=== PATIENT | male | born 1955 | race American Indian/Alaskan Native ===

== ENCOUNTER 2018-07-31 22:48 | Emergency (ER) | payer MEDICARE ==
[2018-08-01] MEDS ORDERED: KEPPRA 1,000 MG/NS 0.75% 100ML 1,000 MG/100 ML BAG IV ONE (00:05)
[2018-08-01 00:30] VITALS: BP 121/74
--- NOTE | 2018-08-01 00:34 | Emergency Department Report ---
HPI - General Chief Complaint: Seizure Time Seen by Provider: 08/01/18 00:04 - [facility] HPI: Room 25 The patient is a 62-year-old male with chief complaint of seizure. The patient has a history of seizures and states she's been out of his Keppra since yester day morning. The patient states this evening he felt an aura and his girlfriend said he had a seizure. Patient's only complaints now are intermittent auras Location: [employer] Duration: [See above] Quality: Aura Severity: Moderate Modifying factors: [see above] Context: [see above] Mode of transportation: [not driving] ED Past Medical Hx - Past Medical History Previous Medical History?: Yes Hx Seizures: Yes Additional medical history: High colesterol - Surgical History Past Surgical History?: No - Family History Family history: no significant - Social History Smoking Status: Current Some Day Smoker (cigars) Substance Use Type: None - Medications Home Medications: Home Medications Medication Instructions Recorded Confirmed Last Taken Type levETIRAcetam [Keppra TAB] 750 mg PO BID #90 tablet 08/01/18 Unknown Rx ED Review of Systems ROS: Stated complaint: SEIZURE Other details as noted in HPI Constitutional: no symptoms reported Eyes: denies: eye pain ENT: denies: throat pain Respiratory: no symptoms reported Cardiovascular: denies: chest pain Endocrine: no symptoms reported Gastrointestinal: denies: abdominal pain Genitourinary: denies: dysuria Musculoskeletal: denies: back pain Neurological: other (seizure) Physical Exam - Physical Exam Vital Signs: Vital Signs 07/31/18 07/31/18 08/01/18 22:59 23:13 00:28 Temperature 98.7 F Pulse Rate 73 66 Respiratory 14 18 16 Rate Blood Pressure 162/85 121/74 [Left] O2 Sat by Pulse 99 Oximetry Physical Exam: GENERAL: The patient is well-developed well-nourished male lying on stretcher no t appearing to be in acute distress. [] HEENT: Normocephalic. Atraumatic. Extraocular motions are intact. Patient has moist mucous membranes. NECK: Supple. Trachea midline CHEST/LUNGS: Clear to auscultation. There is no respiratory distress noted. HEART/CARDIOVASCULAR: Regular. There is no tachycardia. There is no gallop rub or murmur. ABDOMEN: Abdomen is soft, nontender. Patient has normal bowel sounds. There is no abdominal distention. SKIN: There is no rash. There is no edema. There is no diaphoresis. NEURO: The patient is awake, alert, and oriented. The patient is cooperative. The patient has no focal neurologic deficits. The patient has normal speech. Cranial nerves II through XII grossly intact, no drift MUSCULOSKELETAL: There is no evidence of acute injury. ED Course Vital Signs 07/31/18 07/31/18 08/01/18 22:59 23:13 00:28 Temperature 98.7 F Pulse Rate 73 66 Respiratory 14 18 16 Rate Blood Pressure 162/85 121/74 [Left] O2 Sat by Pulse 99 Oximetry ED Medical Decision Making - Lab Data Result diagrams: 08/01/18 00:20 08/01/18 00:20 Laboratory Tests 08/01/18 08/01/18 08/01/18 00:20 00:20 00:20 WBC 6.8 RBC 3.61 L Hgb 12.1 Hct 35.4 L MCV 98 H MCH 34 H MCHC 34 RDW 14.3 Plt Count 207 Lymph % (Auto) 23.7 Lawrence % (Auto) 9.4 H Eos % (Auto) 1.3 Baso % (Auto) 0.7 Lymph # 1.6 Lawrence # 0.6 Eos # 0.1 Baso # 0.1 Seg Neutrophils % 64.9 Seg Neutrophils # 4.4 Sodium 135 L Potassium 3.9 Chloride 97.9 L Carbon Dioxide 25 Anion Gap 16 BUN 11 Creatinine 1.1 Estimated GFR > 60 BUN/Creatinine Ratio 10 Glucose 98 Calcium 9.1 Magnesium 2.00 - Differential Diagnosis seizure Critical care attestation.: If time is entered above; I have spent that time in minutes in the direct care of this critically ill patient, excluding procedure time. ED Disposition Clinical Impression: Seizure Disposition: DC-01 TO HOME OR SELFCARE Is pt being admited?: No Does the pt Need Aspirin: No Condition: Stable Instructions: Epilepsy (ED) Additional Instructions: Return to the emergency department immediately should you develop worsening symptoms, fever, inability to tolerate food or liquid or any other concerns. Prescriptions: levETIRAcetam [Keppra TAB] 750 mg PO BID #90 tablet Referrals: your, neurologist [Other] - 3-5 Days Time of Disposition: 01:09
[2018-08-01 00:38] LABS: Basophils # (Auto) 0.1 K/mm3 (0.0-0.1); Basophils % (Auto) 0.7 % (0.0-1.8); Eosinophils # (Auto) 0.1 K/mm3 (0.0-0.4); Eosinophils % (Auto) 1.3 % (0.0-4.3); Hematocrit 35.4 % (35.5-45.6); Hemoglobin 12.1 gm/dl (11.8-15.2); Lymphocytes # (Auto) 1.6 K/mm3 (1.2-5.4); Lymphocytes % (Auto) 23.7 % (13.4-35.0); Mean Corpuscular HGB Conc 34 % (32-34); Mean Corpuscular Volume 98 fl (84-94); Monocytes # (Auto) 0.6 K/mm3 (0.0-0.8); Monocytes % (Auto) 9.4 % (0.0-7.3); Platelet Count 207 K/mm3 (140-440); Red Blood Count 3.61 M/mm3 (3.65-5.03); Red Cell Distribution Width 14.3 % (13.2-15.2)
[2018-08-01 00:59] LABS: BUN/Creatinine Ratio 10; Blood Urea Nitrogen 11 mg/dL (9-20); Calcium 9.1 mg/dL (8.4-10.2); Hemolysis Index 3
== END 2018-08-01 01:46 | disposition home or self-care (01) ==
LOC: ED 22:48
DX: R56.9 Unspecified convulsions (principal); E78.00 Pure hypercholesterolemia, unspecified; F17.210 Nicotine dependence, cigarettes, uncomplicated
CPT/HCPCS: 36415; 80048; 83735; 85025; 96365; 99283; J1953

== ENCOUNTER 2018-09-08 17:40 | Emergency (ER) | payer MEDICARE ==
--- NOTE | 2018-09-08 18:52 | Emergency Department Report ---
Blank Doc - Documentation Documentation: 63 y/o with pmh of seizures and elevated cholesterol reports 1 day history of right leg swelling with pain . No chest pain or sob. No headache. Plan us right lower ext
[2018-09-08 19:58] LABS: Basophils # (Auto) 0.1 K/mm3 (0.0-0.1); Basophils % (Auto) 0.8 % (0.0-1.8); Eosinophils % (Auto) 0.4 % (0.0-4.3); Hemoglobin 11.6 gm/dl (11.8-15.2); Lymphocytes # (Auto) 1.2 K/mm3 (1.2-5.4); Lymphocytes % (Auto) 12.4 % (13.4-35.0); Mean Corpuscular HGB Conc 35 % (32-34); Mean Corpuscular Volume 96 fl (84-94); Platelet Count 237 K/mm3 (140-440); Red Blood Count 3.45 M/mm3 (3.65-5.03); Red Cell Distribution Width 14.5 % (13.2-15.2)
[2018-09-08 20:20] LABS: Alanine Aminotransferase 14 units/L (7-56); Albumin 4.2 g/dL (3.9-5); BUN/Creatinine Ratio 8; Blood Urea Nitrogen 11 mg/dL (9-20); Calcium 8.9 mg/dL (8.4-10.2); Hemolysis Index 4
[2018-09-08 21:47] VITALS: BP 120/72
--- NOTE | 2018-09-08 22:30 | Vascular Lab Report ---
PROCEDURE: Right lower extremity duplex venous ultrasound. TECHNIQUE: Routine imaging of the deep venous system was performed. This included Doppler spectral a nalysis and color flow imaging. HISTORY: Right leg pain and swelling. COMPARISONS: None. FINDINGS: The deep venous system is compressible. Flow is confirmed by Doppler evaluation and color imaging. Th ere is normal augmentation of blood flow demonstrated. There is some echogenic material present in th e proximal portion of the greater saphenous vein. This is consistent with superficial thrombophlebiti s. IMPRESSION: Superficial thrombophlebitis. No evidence of deep venous thrombosis. This document is electronically signed by Fernando Magaña MD., September 08 2018 10:28:08 PM ET
[2018-09-08] MEDS ORDERED: ROCEPHIN/NS 1 GM/50 ML 1 GM/50 ML BAG IV ONE (23:04)
--- NOTE | 2018-09-08 23:08 | Emergency Department Report ---
ED Lower Extremity HPI - General Chief Complaint: Extremity Injury, Lower Stated Complaint: RT LEG PAIN Time Seen by Provider: 09/08/18 18:50 Source: patient Mode of arrival: Ambulatory Limitations: No Limitations - History of Present Illness Initial Comments: This is a 63-year-old -[place] male who presents with right lower extremities: Air redness from the ankle for 3 days. 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 He started taking pain medication with minimal improvement of symptoms. Patient states when he went to work today and they sent him home because there was increased redness and swelling. He denies recent injury, numbness or tingling, paresthesias, weakness. MD Complaint: leg injury (right) Onset/Timin -: days(s) Injury: Leg: Right Type of Injury: unknown Place: work Severity: moderate Severity scale (0 -10): 6 Improves With: nothing Worsens With: nothing Associated Symptoms: swelling, ambulatory. denies: snap/pop sensation, numbness, tingling, unable to bear weight, able to partially bear weight Treatments Prior to Arrival: NSAIDS - Related Data Previous Rx's Medication Instructions Recorded Last Taken Type levETIRAcetam [Keppra TAB] 750 mg PO BID #90 tablet 08/01/18 Unknown Rx Ibuprofen [Motrin 600 MG tab] 600 mg PO Q8H PRN #20 tablet 09/09/18 Unknown Rx Sulfamethoxazole/Trimethoprim 1 each PO BID #14 tablet 09/09/18 Unknown Rx [Bactrim DS TAB] Allergies Allergy/AdvReac Type Severity Reaction Status Date / Time No Known Allergies Allergy Unverified 07/31/18 23:18 ED Review of Systems ROS: Stated complaint: RT LEG PAIN Other details as noted in HPI Constitutional: denies: chills, fever Respiratory: denies: cough, shortness of breath, wheezing Cardiovascular: denies: chest pain, palpitations Gastrointestinal: denies: abdominal pain, nausea, diarrhea Musculoskeletal: arthralgia (right lower extremity). denies: back pain, joint swelling Skin: denies: rash, lesions Neurological: denies: headache, weakness, paresthesias Psychiatric: denies: anxiety, depression ED Past Medical Hx - Past Medical History Hx Seizures: Yes Additional medical history: High colesterol - Surgical History Additional Surgical History: abd hernia - Social History Smoking Status: Current Some Day Smoker Substance Use Type: None - Medications Home Medications: Home Medications Medication Instructions Recorded Confirmed Last Taken Type levETIRAcetam [Keppra TAB] 750 mg PO BID #90 tablet 08/01/18 Unknown Rx Ibuprofen [Motrin 600 MG tab] 600 mg PO Q8H PRN #20 tablet 09/09/18 Unknown Rx Sulfamethoxazole/Trimethoprim 1 each PO BID #14 tablet 09/09/18 Unknown Rx [Bactrim DS TAB] ED Physical Exam - General Limitations: No Limitations General appearance: alert, in no apparent distress - Respiratory Respiratory exam: Present: normal lung sounds bilaterally. Absent: respiratory distress - Cardiovascular Cardiovascular Exam: Present: regular rate, normal rhythm. Absent: systolic murmur, diastolic murmur, rubs, gallop - GI/Abdominal GI/Abdominal exam: Present: soft, normal bowel sounds - Expanded Lower Extremity Exam Right Hip exam: Present: normal inspection, full ROM Upper Leg exam: Present: normal inspection, full ROM Knee exam: Present: normal inspection, full ROM Lower Leg exam: Present: full ROM, swelling (swelling and erythema to anterior and lateral from patellar to ankle, warmth, blanchable), erythema. Absent: laceration, ecchymosis, deformity, crepidus, dislocation, palpable cord, Francesca's sign Ankle exam: Present: normal inspection, full ROM Foot/Toe exam: Present: normal inspection, full ROM Neuro vascular tendon exam: Present: no vascular compromise Gait: Positive: observed and normal - Neurological Exam Neurological exam: Present: alert, oriented X3, normal gait - Psychiatric Psychiatric exam: Present: normal affect, normal mood - Skin Skin exam: Present: warm, dry, intact, normal color. Absent: rash ED Course Vital Signs 09/08/18 09/08/18 18:50 21:47 Temperature 97.5 F L Pulse Rate 87 77 Respiratory 18 18 Rate Blood Pressure 133/75 Blood Pressure 120/72 [Right] O2 Sat by Pulse 98 98 Oximetry ED Lower Extremity MDM - Lab Data Result diagrams: 09/08/18 19:43 09/08/18 19:43 Lab Results 09/08/18 09/08/18 Range/Units 19:43 19:43 WBC 9.6 (4.5-11.0) K/mm3 RBC 3.45 L (3.65-5.03) M/mm3 Hgb 11.6 L (11.8-15.2) gm/dl Hct 33.0 L (35.5-45.6) % MCV 96 H (84-94) fl MCH 34 H (28-32) pg MCHC 35 H (32-34) % RDW 14.5 (13.2-15.2) % Plt Count 237 (140-440) K/mm3 Lymph % (Auto) 12.4 L (13.4-35.0) % Hamblen % (Auto) 10.0 H (0.0-7.3) % Eos % (Auto) 0.4 (0.0-4.3) % Baso % (Auto) 0.8 (0.0-1.8) % Lymph # 1.2 (1.2-5.4) K/mm3 Hamblen # 1.0 H (0.0-0.8) K/mm3 Eos # 0.0 (0.0-0.4) K/mm3 Baso # 0.1 (0.0-0.1) K/mm3 Seg Neutrophils % 76.4 H (40.0-70.0) % Seg Neutrophils # 7.3 (1.8-7.7) K/mm3 Sodium 130 L (137-145) mmol/L Potassium 4.2 (3.6-5.0) mmol/L Chloride 89.6 L (98-107) mmol/L Carbon Dioxide 29 (22-30) mmol/L Anion Gap 16 mmol/L BUN 11 (9-20) mg/dL Creatinine 1.3 (0.8-1.5) mg/dL Estimated GFR > 60 ml/min BUN/Creatinine Ratio 8 % Glucose 167 H (75-100) mg/dL Calcium 8.9 (8.4-10.2) mg/dL Total Bilirubin 0.40 (0.1-1.2) mg/dL AST 21 (5-40) units/L ALT 14 (7-56) units/L Alkaline Phosphatase 95 (35-129) units/L Total Protein 7.5 (6.3-8.2) g/dL Albumin 4.2 (3.9-5) g/dL Albumin/Globulin Ratio 1.3 % - Radiology Data Radiology results: report reviewed PROCEDURE: Right lower extremity duplex venous ultrasound. TECHNIQUE: Routine imaging of the deep venous system was performed. This included Doppler spectral analysis and color flow imaging. HISTORY: Right leg pain and swelling. COMPARISONS: None. FINDINGS: The deep venous system is compressible. Flow is confirmed by Doppler evaluation and color imaging. There is normal augmentation of blood flow demonstrated. There is some echogenic material present in the proximal portion of the greater saphenous vein. This is consistent with superficial thrombophlebitis. IMPRESSION: Superficial thrombophlebitis. No evidence of deep venous thrombosis. - Medical Decision Making Patient was examined by me. Vitals are normal and patient is in no acute dis tress. Obtained a CBC, BMP, and doppler of right lower extremity. There is some anemia mild elevation of glucose. Superficial thrombophlebitis. No evidence of deep venous thrombosis. All other labs are unremarkable. Patient will be treated for cellulitis of right lower extremity. Referral to vascular for follow up of thrombophlebitis. Referral to vascular for continued care. Patient informed of results. IV site initiated. Patient given Rocephin 1 g IV. Start Bactrim DS 1 tablet by mouth twice a day 10 days. Plan discussed with patient to discharge home and treat outpatient. He agrees with ER plan. Patient discharged home in stable condition. Follow up with PCP in 2-3 days. Critical care attestation.: If time is entered above; I have spent that time in minutes in the direct care of this critically ill patient, excluding procedure time. ED Disposition Clinical Impression: Swelling of right lower extremity, Superficial thrombophlebitis of right leg Cellulitis of lower extremity Qualifiers: Laterality: right Qualified Code(s): L03.115 - Cellulitis of right lower limb Disposition: TO HOME OR SELFCARE Is pt being admited?: No Does the pt Need Aspirin: No Condition: Stable Instructions: Cellulitis (ED) Prescriptions: Sulfamethoxazole/Trimethoprim [Bactrim DS TAB] 1 each PO BID #14 tablet Ibuprofen [Motrin 600 MG tab] 600 mg PO Q8H PRN #20 tablet PRN Reason: Pain Referrals: ABBIE CARRIZALES [Other] - 3-5 Days [facility] [Provider Group] - 3-5 Days JESUS GOOD MD [Staff Physician] - 3-5 Days RAND OLSON MD [Staff Physician] - 3-5 Days Forms: Work/School Release Form(ED) Time of Disposition: 01:09
== END 2018-09-09 01:36 | disposition home or self-care (01) ==
LOC: ED 17:40
DX: I80.01 Phlebitis and thrombophlebitis of superficial vessels of right lower extremity (principal); L03.115 Cellulitis of right lower limb; E78.00 Pure hypercholesterolemia, unspecified; F17.200 Nicotine dependence, unspecified, uncomplicated
CPT/HCPCS: 36415; 80053; 85025; 93971; 96365; 99284; J0696

== ENCOUNTER 2019-03-24 15:35 | Inpatient (IN) | payer MEDICARE ==
--- NOTE | 2019-03-24 16:08 | Emergency Department Report ---
Blank Doc - Documentation Documentation: 63-year-old male that presents with constipation issues with abdominal discomf ort. Denies any n/v. This initial assessment/diagnostic orders/clinical plan/treatment(s) is/are subject to change based on patient's health status, clinical progression and re- assessment by fellow clinical providers in the ED. Further treatment and workup at subsequent clinical providers discretion. Patient/guardians urged not to elope from the ED as their condition may be serious if not clinically assessed and managed. Initial orders include: 1- Patient sent to [facility] for further evaluation and treatment 2- XR abd 3- labs
--- NOTE | 2019-03-24 17:13 | XRay Report ---
ABDOMEN 3 VIEW(S) INDICATION / CLINICAL INFORMATION: abd pain. COMPARISON: None available. FINDINGS: TUBES / LINES: None. BOWEL GAS PATTERN: No significant abnormality. FREE AIR / EXTRALUMINAL GAS: None seen. ADDITIONAL FINDINGS: Large amount of stool is seen in the transverse colon. IMPRESSION: 1. Constipation. Otherwise unremarkable study. Signer Name: Ehsan Tiwari MD Signed: 03/24/2019 5:08 PM Workstation Name: [id number]
[2019-03-24 18:23] LABS: Basophils % (Auto) 0.4 % (0.0-1.8); Eosinophils % (Auto) 0.3 % (0.0-4.3); Hematocrit 37.1 % (35.5-45.6); Hemoglobin 13.1 gm/dl (11.8-15.2); Lymphocytes # (Auto) 1.3 K/mm3 (1.2-5.4); Lymphocytes % (Auto) 19.6 % (13.4-35.0); Mean Corpuscular HGB Conc 35 % (32-34); Mean Corpuscular Volume 93 fl (84-94); Monocytes # (Auto) 0.7 K/mm3 (0.0-0.8); Monocytes % (Auto) 10.5 % (0.0-7.3); Platelet Count 236 K/mm3 (140-440); Red Blood Count 3.99 M/mm3 (3.65-5.03); Red Cell Distribution Width 13.8 % (13.2-15.2)
[2019-03-24 18:35] LABS: Alanine Aminotransferase 10 units/L (7-56); Albumin 4.6 g/dL (3.9-5); BUN/Creatinine Ratio 6; Blood Urea Nitrogen 7 mg/dL (9-20); Calcium 9.2 mg/dL (8.4-10.2); Hemolysis Index 14
[2019-03-24] MEDS ORDERED: KEPPRA 1,000 MG/NS 0.75% 100ML 1,000 MG/100 ML BAG IV ONE ×2 (19:52→19:56)
[2019-03-24] MEDS ORDERED: NACL 0.9% 500 ML 500 ML IV ONE ×2 (19:56→21:41)
[2019-03-24] MEDS ORDERED: ZOFRAN IV ONE (19:56)
[2019-03-24] MEDS ORDERED: MORPHINE IV ONE (19:56)
--- NOTE | 2019-03-24 19:58 | Emergency Department Report ---
ED General Adult HPI - General Chief complaint: Abdominal Pain Stated complaint: CONSTIPATION 2DAYS Time Seen by Provider: 03/24/19 16:07 Source: patient, RN notes reviewed Mode of arrival: Wheelchair Limitations: No Limitations - History of Present Illness Initial comments: Primary care Dr.: Dr. Parkinson Past medical history: Seizure, hernia repair, high cholesterol This is a 63-year-old gentleman. The patient is not known to this provider previously. He presents to the ER with a complaint of "I feel like I'm going to have a seizure." He also states that he has not been able to tolerate his medication, and that he has diffuse supraumbilical abdominal pain. Last bowel movement was 3 days ago. He states that anytime he eats, he throws up. He denies urinary symptoms. He reports flatus 3 hours ago. He is not had any seizures today. -: Gradual, days(s) Location: abdomen Severity scale (0 -10): 9 Quality: aching Consistency: intermittent Improves with: rest Worsens with: eating - Related Data Home Medications Medication Instructions Recorded Confirmed Last Taken Simvastatin 40 mg PO QDAY 03/24/19 03/24/19 Unknown hydroCHLOROthiazide [HCTZ] 25 mg PO QDAY 03/24/19 03/24/19 Unknown lamoTRIgine [LaMICtal] 200 mg PO BID 03/24/19 03/24/19 Unknown Previous Rx's Medication Instructions Recorded Last Taken Type levETIRAcetam [Keppra TAB] 750 mg PO BID #90 tablet 08/01/18 Unknown Rx Allergies Allergy/AdvReac Type Severity Reaction Status Date / Time No Known Allergies Allergy Unverified 07/31/18 23:18 ED Review of Systems ROS: Stated complaint: CONSTIPATION 2DAYS Other details as noted in HPI Constitutional: malaise, weakness Eyes: denies: eye discharge ENT: denies: epistaxis Respiratory: denies: cough Cardiovascular: denies: syncope Gastrointestinal: abdominal pain, nausea, vomiting, constipation Genitourinary: denies: dysuria, testicular pain Musculoskeletal: denies: back pain Skin: denies: lesions Neurological: weakness Hematological/Lymphatic: denies: easy bleeding ED Past Medical Hx - Past Medical History Previous Medical History?: Yes Hx Seizures: Yes Additional medical history: High colesterol - Surgical History Past Surgical History?: Yes Additional Surgical History: abd hernia - Social History Smoking Status: Never Smoker Substance Use Type: None - Medications Home Medications: Home Medications Medication Instructions Recorded Confirmed Last Taken Type levETIRAcetam [Keppra TAB] 750 mg PO BID #90 tablet 08/01/18 03/24/19 Unknown Rx Simvastatin 40 mg PO QDAY 03/24/19 03/24/19 Unknown History hydroCHLOROthiazide [HCTZ] 25 mg PO QDAY 03/24/19 03/24/19 Unknown History lamoTRIgine [LaMICtal] 200 mg PO BID 03/24/19 03/24/19 Unknown History ED Physical Exam - General Limitations: No Limitations General appearance: alert, in no apparent distress - Head Head exam: Present: atraumatic, normocephalic - Eye Eye exam: Present: normal appearance, EOMI. Absent: nystagmus - ENT ENT exam: Present: normal exam, normal orophraynx, mucous membranes moist, normal external ear exam - Neck Neck exam: Present: normal inspection, full ROM. Absent: tenderness, meningismus - Respiratory Respiratory exam: Present: normal lung sounds bilaterally. Absent: respiratory distress - Cardiovascular Cardiovascular Exam: Present: regular rate, normal rhythm, normal heart sounds. Absent: bradycardia, tachycardia, irregular rhythm, systolic murmur, diastolic murmur, rubs, gallop - GI/Abdominal GI/Abdominal exam: Present: soft. Absent: distended, tenderness, guarding, rebound, rigid, pulsatile mass - Rectal Rectal exam: Present: deferred - Extremities Exam Extremities exam: Present: normal inspection, full ROM, other (2+ pulses noted in the bilateral upper, lower extremities. There is no long bone tenderness. Musculoskeletal compartments are soft. The pelvis is stable.). Absent: pedal edema, calf tenderness - Back Exam Back exam: Present: normal inspection, full ROM. Absent: tenderness, CVA tenderness (R), CVA tenderness (L), paraspinal tenderness, vertebral tenderness - Neurological Exam Neurological exam: Present: alert, oriented X3, other (there is no facial droop. The tongue is midline. Extraocular movements are intact bilaterally. Patient speaking in full complete sentences. Shoulder shrug is intact bilaterally. Hearing is grossly intact bilaterally. Visual acuity intact to finger counting and color perception at a close distance. 5/5 strength 4 extremities. Sensation intact to light touch in 4 extremities.) - Psychiatric Psychiatric exam: Present: normal affect, normal mood - Skin Skin exam: Present: warm, dry, intact, normal color. Absent: rash ED Course Vital Signs 03/24/19 03/24/19 03/24/19 15:42 16:08 19:36 Temperature 98.2 F 98.2 F Pulse Rate 84 84 73 Respiratory 16 16 11 L Rate Blood Pressure 153/87 153/87 Blood Pressure 153/87 [Right] O2 Sat by Pulse 99 100 Oximetry 03/24/19 03/24/19 03/24/19 19:53 20:00 22:00 Temperature Pulse Rate 70 69 70 Respiratory 14 12 13 Rate Blood Pressure 163/85 157/86 Blood Pressure 163/84 [Right] O2 Sat by Pulse 100 100 100 Oximetry - Reevaluation(s) Reevaluation #1: 03/24/19 20:28 Differential diagnosis, including not limited to: Obstruction, constipation, obstipation, dehydration, hypovolemic hyponatremia, urinary tract infection Assessment and plan 63-year-old gentleman with primary complaint of nausea, vomiting, abdominal pain, not having had a bowel movement for 3 days, not able to tolerate liquid feeds, with hyponatremia, hypochloremia, kalemia, suspect hypovolemic hyponatremia. He's not had a seizure while here in the emergency room. He will be started on gentle IV fluids, we will treat his symptoms, low with intravenous Keppra. CT scan of abdomen pelvis has been recommended. Patient will likely be admitted to the medical service for supportive care after initial diagnostics have resulted. We discussed this with the patient who verbalizes understanding, and is amenable to this plan of care. Reevaluation #2: 03/24/19 22:40 CT scan abdomen pelvis shows no acute disease. Constipation is suggested. Repeat sodium still quite low at 123. Patient will be admitted to the medical service for correction of hyponatremia. Hospital physician, Dr. Bravo to admit patient to the medical service. ED Medical Decision Making - Lab Data Result diagrams: 03/24/19 17:02 03/24/19 21:47 Vital Signs 03/24/19 03/24/19 03/24/19 15:42 16:08 19:53 Temperature 98.2 F 98.2 F Pulse Rate 84 84 70 Respiratory 16 16 14 Rate Blood Pressure 153/87 153/87 Blood Pressure 153/87 163/84 [Right] O2 Sat by Pulse 99 100 100 Oximetry Lab Results 03/24/19 03/24/19 Range/Units 17:02 17:02 WBC 6.8 (4.5-11.0) K/mm3 RBC 3.99 (3.65-5.03) M/mm3 Hgb 13.1 (11.8-15.2) gm/dl Hct 37.1 (35.5-45.6) % MCV 93 (84-94) fl MCH 33 H (28-32) pg MCHC 35 H (32-34) % RDW 13.8 (13.2-15.2) % Plt Count 236 (140-440) K/mm3 Lymph % (Auto) 19.6 (13.4-35.0) % Armstrong % (Auto) 10.5 H (0.0-7.3) % Eos % (Auto) 0.3 (0.0-4.3) % Baso % (Auto) 0.4 (0.0-1.8) % Lymph # 1.3 (1.2-5.4) K/mm3 Armstrong # 0.7 (0.0-0.8) K/mm3 Eos # 0.0 (0.0-0.4) K/mm3 Baso # 0.0 (0.0-0.1) K/mm3 Seg Neutrophils % 69.2 (40.0-70.0) % Seg Neutrophils # 4.7 (1.8-7.7) K/mm3 Sodium 121 L (137-145) mmol/L Potassium 3.4 L (3.6-5.0) mmol/L Chloride 79.5 L (98-107) mmol/L Carbon Dioxide 24 (22-30) mmol/L Anion Gap 21 mmol/L BUN 7 L (9-20) mg/dL Creatinine 1.1 (0.8-1.5) mg/dL Estimated GFR > 60 ml/min BUN/Creatinine Ratio 6 % Glucose 106 H (75-100) mg/dL Calcium 9.2 (8.4-10.2) mg/dL Total Bilirubin 0.40 (0.1-1.2) mg/dL AST 15 (5-40) units/L ALT 10 (7-56) units/L Alkaline Phosphatase 99 (35-129) units/L Total Protein 8.2 (6.3-8.2) g/dL Albumin 4.6 (3.9-5) g/dL Albumin/Globulin Ratio 1.3 % - EKG Data -: EKG Interpreted by Nd EKG shows normal: sinus rhythm Rate: normal - EKG Data When compared to previous EKG there are: previous EKG unavailable 03/24/19 20:28 EKG shows a sinus rhythm, 69 bpm, normal axis, QTC is prolonged at 236 ms, there is left ventricular hypertrophy, there is a biphasic T-wave in V2, the EKG is abnormal, the EKG is not consistent with ST elevation myocardial infarction. - Radiology Data Radiology results: pending, report reviewed, image reviewed Print Report Referring Physician: SADE CEE Patient Name: JANE MILLIGAN Date of : 1955 Sex: Male Report Date: 2019-03-24 Report Status: [place] [address] Cat Scan Report Signed Patient: JANE MILLIGAN MR#: [id number] : 1955 Acct:[id number] Age/Sex: 63 / M ADM Date: 03/24/19 Loc: ED Att ending Dr: Ordering Physician: SADE CEE MD Date of Service: 03/24/19 Procedure(s): CT abdomen pelvis w con Accession Number(s): [id number] cc: SADE CEE MD CT abdomen pelvis w con INDICATION: Abdominal pain and nausea and vomiting. TECHNIQUE: All CT scans at this location are performed using the following dose modulation technique: Automated exposure control. 100 cc of Omnipaque 300 is administered. COMPARISON: Abdominal radiographs obtained earlier today FINDINGS: Abdomen: No acute abnormality is seen in the lung bases. Liver, spleen, pancreas, adrenal glands, and kidneys are unremarkable. Atherosclerotic calcifications are noted in the aorta and iliac arteries. There is no adenopathy. Gallbladder is grossly unremarkable. There is some focal wall thickening noted in the duodenal bulb. There is a large amount of stool noted in the colon suggesting constipation. Pelvis: There are fluid-filled small bowel loops in the pelvis. They are not abnormally dilated transition point is seen. The appendix is unremarkable. Urinary bladder is distended. The prostate gland is enlarged. No adenopathy is seen. Atherosclerotic calcifications are noted in the aorta and iliac arteries. On review of bone windows, no acute osseous abnormalities are seen. IMPRESSION: 1. There is fluid noted in the small bowel. No obstruction is seen. The appearance could indicate an enteritis. There is some focal wall thickening noted in the duodenal bulb which could represent peptic ulcer disease or duodenitis. There is no free air. There are no abnormal fluid collections. There is a large amount of stool in the colon raising possibility of constipation. There is atherosclerotic disease. Signer Name: Bandar Frost MD Signed: 03/24/2019 9:16 PM Workstation Name: [id number] Transcribed By: Dictated By: Bandar Frost MD Electronically Authenticated By: Bandar Frost MD Signed Date/Time: 03/24/192115 Print Report Referring Physician: LC CUADRA Patient Name: JANE MILLIGAN Date of : 1955 Sex: Male Report Date: 2019-03-24 Report Status: Finalized Findings [facility] [address] [place] [address] XRay Report Signed Patient: JANE MILLIGAN MR#: [id number] : 1955 Acct:[id number] Age/Sex: 63 / M ADM Date: 03/24/19 Loc: ED Attending Dr: Ordering Physician: LC CUADRA NP Date of Service: 03/24/19 Procedure(s): XR abd series w cxr 1V Accession Number(s): [id number] cc: LC CUADRA NP Fluoro Time In Minutes: ABDOMEN 3 VIEW(S) INDICATION / CLINICAL INFORMATION: abd pain. COMPARISON: None available. FINDINGS: TUBES / LINES: None. BOWEL GAS PATTERN: No significant abnormality. FREE AIR / EXTRALUMINAL GAS: None seen. ADDITIONAL FINDINGS: Large amount of stool is seen in the transverse colon. IMPRESSION: 1. Constipation. Otherwise unremarkable study. Signer Name: Ehsan Tiwari MD Signed: 03/24/2019 5:08 PM Workstation Name: [id number] Transcribed By: Dictated By: Ehsan Tiwari MD Electronically Authenticated By: Ehsan Tiwari MD Signed Date/Time: 03/24/191707 DD/ 04 TD/TT: Critical care attestation.: If time is entered above; I have spent that time in minutes in the direct care of this critically ill patient, excluding procedure time. ED Disposition Clinical Impression: Hyponatremia, Hypokalemia Constipation Qualifiers: Constipation type: other constipation type Qualified Code(s): K59.09 - Other constipation Disposition: OP ADMIT IP TO THIS HOSP Is pt being admited?: Yes Condition: Good [facility] [Referring] - 3-5 Days
[2019-03-24] MEDS: KCL 10MEQ/100ML 10 MEQ/100 ML BAG IV SCH ×3 (20:39→22:58)
--- NOTE | 2019-03-24 21:20 | Cat Scan Report ---
CT abdomen pelvis w con INDICATION: Abdominal pain and nausea and vomiting. TECHNIQUE: All CT scans at this location are performed using the following dose modulation technique: Automated exposure control. 100 cc of Omnipaque 300 is administered. COMPARISON: Abdominal radiographs obtained earlier today FINDINGS: Abdomen: No acute abnormality is seen in the lung bases. Liver, spleen, pancreas, adrenal glands, and kidneys are unremarkable. Atherosclerotic calcifications are noted in the aorta and iliac arteries. There is no adenopathy. Gallbladder is grossly unremarkable. There is some focal wall thickening note d in the duodenal bulb. There is a large amount of stool noted in the colon suggesting constipation. Pelvis: There are fluid-filled small bowel loops in the pelvis. They are not abnormally dilated trans ition point is seen. The appendix is unremarkable. Urinary bladder is distended. The prostate gland is enlarged. No adenopathy is seen. Atherosclerotic calcifications are noted in the aorta and iliac arteries. On review of bone windows, no acute osseous abnormalities are seen. IMPRESSION: 1. There is fluid noted in the small bowel. No obstruction is seen. The appearance could indicate an enteritis. There is some focal wall thickening noted in the duodenal bulb which could represent peptic ulcer dis ease or duodenitis. There is no free air. There are no abnormal fluid collections. There is a large amount of stool in the colon raising possibility of constipation. There is atherosclerotic disease. Signer Name: Bandar Frost MD Signed: 03/24/2019 9:16 PM Workstation Name: [id number]
[2019-03-24] MEDS ORDERED: CEPHULAC PO ONE (21:41)
[2019-03-24 21:52] LABS: Uric Acid 4.3 mg/dL (3.5-7.6)
[2019-03-24 22:39] LABS: Bacteria,Urine 1+ /HPF (Negative); Bilirubin,Urine NEG (Negative); Blood,Urine MOD (Negative); Color,Urine Straw (Yellow); Protein,Urine <15 mg/dL mg/dL (Negative); Urobilinogen,Urine < 2.0 mg/dL (<2.0); WBC,Urine < 1.0 /HPF (0.0-6.0)
[2019-03-24] MEDS ORDERED: ZOFRAN IV PRN (23:00)
[2019-03-24] MEDS ORDERED: SODIUM CHLORIDE FLUSH SYRINGE 10 ML IV PRN (23:00)
--- NOTE | 2019-03-24 23:02 | History and Physical Report ---
History of Present Illness Date of examination: 03/24/19 History of present illness: 63-year-old man with a history of hypertension, hyperlipidemia, seizure comes emergency room with complaints of abdominal pain that started yesterday after eating salmon. Pain is periumbilical which she describes as dull pain, intermit tent every 1 hour, intensity follow 10, no radiation cannot identify exacerbating factor. He stated that his abdominal pain is not resolved and was associated with multiple episodes of nausea vomiting. Today he has decreased appetite. Denies diarrhea, fever or chills eview Of Systems: Constitutional: no weight loss, fever, chills Ears, eyes, nose, mouth and throat: no nasal congestion, no nasal discharge, no sinus pressure, blurry vision, diplopia Neck: No neck pain or rigidity. Cardiovascular: No palpitations, chest pain Respiratory: No shortness of breath, cough Gastrointestinal: No hematochezia, abdominal pain Genitourinary : no dysuria, frequency , hematuria Musculoskeletal: no muscle ache , joint pain Integumentary: no rash, no pruritis Neurological: no parathesias, focal weakness Endocrine: no cold or heat intolerance, no polyuria or polydipsia Hematologic/Lymphatic: no easy bruising, no easy bleeding, no gland swelling Allergic/Immunologic: no urticaria, no angioedema. PAST MEDICAL HISTORY:hypertension, hyperlipidemia, seizure PAST SURGICAL HISTORY: FAMILY HISTORY:hypertension, diabetes SOCIAL HISTORY: denies drugs, alcohol, smoke 1-1/2 cigars a day Medications and Allergies Allergies Allergy/AdvReac Type Severity Reaction Status Date / Time No Known Allergies Allergy Unverified 07/31/18 23:18 Home Medications Medication Instructions Recorded Confirmed Last Taken Type levETIRAcetam [Keppra TAB] 750 mg PO BID #90 tablet 08/01/18 03/24/19 Unknown Rx Simvastatin 40 mg PO QDAY 03/24/19 03/24/19 Unknown History hydroCHLOROthiazide [HCTZ] 25 mg PO QDAY 03/24/19 03/24/19 Unknown History lamoTRIgine [LaMICtal] 200 mg PO BID 03/24/19 03/24/19 Unknown History Active Meds: Active Medications Acetaminophen (Tylenol) 650 mg PO Q4H PRN PRN Reason: Pain MILD(1-3)/Fever >100.5/FITZGERALD Enoxaparin Sodium (Lovenox) 30 mg SUB-Q QDAY MAGI Potassium Chloride (Kcl 10meq/100ml) 10 meq in 100 mls @ 100 mls/hr IV Q1H MAGI Stop: 03/24/19 23:59 Last Admin: 03/24/19 22:58 Dose: 100 mls/hr Documented by: Sodium Chloride (Nacl 0.9% 1000 Ml) 1,000 mls @ 125 mls/hr IV DIRECT MAGI Ondansetron HCl (Zofran) 4 mg IV Q8H PRN PRN Reason: Nausea And Vomiting Sodium Chloride (Sodium Chloride Flush Syringe 10 Ml) 10 ml IV BID MAGI Sodium Chloride (Sodium Chloride Flush Syringe 10 Ml) 10 ml IV PRN PRN PRN Reason: LINE FLUSH Exam - Physical Exam Narrative exam: General Apperance: The patient sitting in bed no acute distress HEENT: Normocephalic, atraumatic. Pupils equally round and reactive to light, extraocular movement intact, and no sclericterus or JVD or thyromegaly or nodule. Neck supple, no carotid bruit, mucous membranes moist, no exudate or erythema Heart: S1-S2, regular is rhythm Lungs: Clear to auscultation bilaterally, breathing comfortable Abdomen: Positive bowel sounds, soft, nontender, nondistended, no organomegaly Extremities: No edema cyanosis clubbing Skin: no rash, nodule, warm and dry Neuro:CN 2 -12 intact, motor/sensory intact, speech is fluent - Constitutional Vitals: Temp Pulse Resp BP Pulse Ox 98.2 F 70 13 157/86 100 03/24/19 16:08 03/24/19 22:00 03/24/19 22:00 03/24/19 22:00 03/24/19 22:00 Results - Labs CBC & Chem 7: 03/24/19 17:02 03/24/19 21:47 Labs: Abnormal lab results 03/24/19 03/24/19 03/24/19 Range/Units 17:02 17:02 20:12 MCH 33 H (28-32) pg MCHC 35 H (32-34) % Pickett % (Auto) 10.5 H (0.0-7.3) % Sodium 121 L (137-145) mmol/L Potassium 3.4 L (3.6-5.0) mmol/L Chloride 79.5 L (98-107) mmol/L BUN 7 L (9-20) mg/dL Glucose 106 H (75-100) mg/dL Total Creatine Kinase 194 H (55-170) units/L 03/24/19 Range/Units 21:47 MCH (28-32) pg MCHC (32-34) % Pickett % (Auto) (0.0-7.3) % Sodium 123 L (137-145) mmol/L Potassium (3.6-5.0) mmol/L Chloride (98-107) mmol/L BUN (9-20) mg/dL Glucose (75-100) mg/dL Total Creatine Kinase (55-170) units/L - Imaging and Cardiology EKG: image reviewed Chest x-ray: report reviewed Abdominal x-ray: report reviewed CT scan - abdomen: report reviewed CT scan - pelvis: report reviewed Assessment and Plan Assessment Hyponatremia Gastroenteritis, most likely viral Hypertension Hyperlipidemia Seizure Plan Admit to medicine Start IV fluid, monitor sodium levels Continue appropriate outpatient medications DVT prophylaxis
[2019-03-25] MEDS: NACL 0.9% 1000 ML 1,000 ML IV SCH ×2 (05:05→12:23)
[2019-03-25 07:35] LABS: Basophils % (Auto) 0.6 % (0.0-1.8); Eosinophils % (Auto) 0.8 % (0.0-4.3); Hematocrit 37.2 % (35.5-45.6); Lymphocytes # (Auto) 1.4 K/mm3 (1.2-5.4); Lymphocytes % (Auto) 22.4 % (13.4-35.0); Mean Corpuscular HGB Conc 35 % (32-34); Mean Corpuscular Volume 94 fl (84-94); Monocytes # (Auto) 0.7 K/mm3 (0.0-0.8); Platelet Count 211 K/mm3 (140-440); Red Blood Count 3.96 M/mm3 (3.65-5.03); Red Cell Distribution Width 13.8 % (13.2-15.2)
[2019-03-25 08:00] LABS: BUN/Creatinine Ratio 7; Blood Urea Nitrogen 6 mg/dL (9-20); Calcium 8.7 mg/dL (8.4-10.2); Hemolysis Index 8
[2019-03-25] MEDS: SODIUM CHLORIDE FLUSH SYRINGE 10 ML IV SCH ×2 (09:41→22:15)
[2019-03-25] MEDS: ENOXAPARIN SUB-Q SCH (09:41)
[2019-03-25] MEDS: LaMICtal PO SCH ×2 (09:41→22:15)
[2019-03-25] MEDS: PRAVACHOL PO SCH (09:41)
--- NOTE | 2019-03-25 10:05 | Progress Note ---
Assessment and Plan Assessment and plan: 63-year-old man with a history of hypertension, hyperlipidemia, seizure comes emergency room with complaints of abdominal pain that started yesterday after eating salmon. Pain is periumbilical which she describes as dull pain, intermittent every 1 hour, intensity follow 10, no radiation cannot identify exacerbating factor. He stated that his abdominal pain is not resolved and was associated with multiple episodes of nausea vomiting. Today he has decreased appetite. Hyponatremia Acute Gastroenteritis, most likely viral Hypertension Hyperlipidemia Seizure Plan Admitted to Tele Continue iv fluids monitor sodium levels Na 127, increasing Continue appropriate outpatient medications DVT prophylaxis Poss dc tomorrow if Sodium normal or close to normal. History Interval history: Vomiting subsiding less abd pain Hospitalist Physical - Physical exam Narrative exam: Gen: Not in acute distress, lying in bed, HEENT: Normocephalic, atraumatic Neck: supple, no JVD Heart: S1 and S2 reg, no murmurs, rubs or gallop Lungs: Clear to auscultation, no rhonchi, no wheeze Abd: soft, non tender, non distended, normal BS, Ext: No edema, no clubbing, no cyanosis Neuro: Awake, alert, oriented X 3, no focal neurological signs - Constitutional Vitals: Temp Pulse Resp BP Pulse Ox 98.0 F 82 18 135/81 100 03/25/19 07:43 03/25/19 07:43 03/25/19 07:43 03/25/19 07:43 03/25/19 07:43 Results - Labs CBC & Chem 7: 03/25/19 06:59 03/25/19 06:59 Labs: Laboratory Last Values WBC 6.1 K/mm3 (4.5-11.0) 03/25/19 06:59 RBC 3.96 M/mm3 (3.65-5.03) 03/25/19 06:59 Hgb 13.0 gm/dl (11.8-15.2) 03/25/19 06:59 Hct 37.2 % (35.5-45.6) 03/25/19 06:59 MCV 94 fl (84-94) 03/25/19 06:59 MCH 33 pg (28-32) H 03/25/19 06:59 MCHC 35 % (32-34) H 03/25/19 06:59 RDW 13.8 % (13.2-15.2) 03/25/19 06:59 Plt Count 211 K/mm3 (140-440) 03/25/19 06:59 Lymph % (Auto) 22.4 % (13.4-35.0) 03/25/19 06:59 [place] % (Auto) 11.0 % (0.0-7.3) H 03/25/19 06:59 Eos % (Auto) 0.8 % (0.0-4.3) 03/25/19 06:59 Baso % (Auto) 0.6 % (0.0-1.8) 03/25/19 06:59 Lymph # 1.4 K/mm3 (1.2-5.4) 03/25/19 06:59 [place] # 0.7 K/mm3 (0.0-0.8) 03/25/19 06:59 Eos # 0.0 K/mm3 (0.0-0.4) 03/25/19 06:59 Baso # 0.0 K/mm3 (0.0-0.1) 03/25/19 06:59 Seg Neutrophils % 65.2 % (40.0-70.0) 03/25/19 06:59 Seg Neutrophils # 4.0 K/mm3 (1.8-7.7) 03/25/19 06:59 Sodium 127 mmol/L (137-145) L 03/25/19 06:59 Potassium 3.8 mmol/L (3.6-5.0) 03/25/19 06:59 Chloride 89.5 mmol/L (98-107) L 03/25/19 06:59 Carbon Dioxide 20 mmol/L (22-30) L 03/25/19 06:59 Anion Gap 21 mmol/L 03/25/19 06:59 BUN 6 mg/dL (9-20) L 03/25/19 06:59 Creatinine 0.9 mg/dL (0.8-1.5) 03/25/19 06:59 Estimated GFR > 60 ml/min 03/25/19 06:59 BUN/Creatinine Ratio 7 % 03/25/19 06:59 Glucose 83 mg/dL (75-100) 03/25/19 06:59 Uric Acid 4.3 mg/dL (3.5-7.6) 03/24/19 20:12 Calcium 8.7 mg/dL (8.4-10.2) 03/25/19 06:59 Magnesium 1.80 mg/dL (1.7-2.3) 03/24/19 20:12 Total Bilirubin 0.40 mg/dL (0.1-1.2) 03/24/19 17:02 AST 15 units/L (5-40) 03/24/19 17:02 ALT 10 units/L (7-56) 03/24/19 17:02 Alkaline Phosphatase 99 units/L (35-129) 03/24/19 17:02 Total Creatine Kinase 194 units/L (55-170) H 03/24/19 20:12 Total Protein 8.2 g/dL (6.3-8.2) 03/24/19 17:02 Albumin 4.6 g/dL (3.9-5) 03/24/19 17:02 Albumin/Globulin Ratio 1.3 % 03/24/19 17:02 TSH 1.450 mlU/mL (0.270-4.200) 03/24/19 20:12 Urine Color Straw (Yellow) 03/24/19 22:20 Urine Turbidity Clear (Clear) 03/24/19 22:20 Urine pH 6.0 (5.0-7.0) 03/24/19 22:20 Ur Specific [place] 1.015 (1.003-1.030) 03/24/19 22:20 Urine Protein <15 mg/dl mg/dL (Negative) 03/24/19 22:20 Urine Glucose (UA) Neg mg/dL (Negative) 03/24/19 22:20 Urine Ketones Tr mg/dL (Negative) 03/24/19 22:20 Urine Blood Mod (Negative) 03/24/19 22:20 Urine Nitrite Neg (Negative) 03/24/19 22:20 Urine Bilirubin Neg (Negative) 03/24/19 22:20 Urine Urobilinogen < 2.0 mg/dL (<2.0) 03/24/19 22:20 Ur Leukocyte Esterase Neg (Negative) 03/24/19 22:20 Urine WBC (Auto) < 1.0 /HPF (0.0-6.0) 03/24/19 22:20 Urine RBC (Auto) 4.0 /HPF (0.0-6.0) 03/24/19 22:20 Urine Bacteria (Auto) 1+ /HPF (Negative) 03/24/19 22:20 Urine Osmolality 163 Mosm/kg 03/24/19 22:20 Urine Creatinine 48.0 mg/dL (0.1-20.0) H 03/24/19 22:20 Urine Sodium 26 mmol/L 03/24/19 22:20 Active Medications - Current Medications Current Medications: Generic Name Dose Route Start Last Admin Trade Name Freq PRN Reason Stop Dose Admin Acetaminophen 650 mg 03/24/19 23:00 Tylenol PO Q4H PRN Pain MILD(1-3)/Fever >100.5/FITZGERALD Enoxaparin Sodium 40 mg 03/25/19 10:00 03/25/19 09:41 Lovenox SUB-Q 40 mg QDAY MAGI Administration Sodium Chloride 1,000 mls @ 125 mls/hr 03/24/19 23:00 03/25/19 05:05 Nacl 0.9% 1000 Ml IV 125 mls/hr DIRECT MAGI Administration Levetiracetam 750 mg/ Dextrose 107.5 mls @ 400 mls/hr 03/25/19 10:00 IV Q12HR MAGI Lamotrigine 200 mg 03/25/19 10:00 03/25/19 09:41 Lamictal PO 200 mg BID MAGI Administration Ondansetron HCl 4 mg 03/24/19 23:00 Zofran IV Q8H PRN Nausea And Vomiting Pravastatin Sodium 80 mg 03/25/19 10:00 03/25/19 09:41 Pravachol PO 80 mg QDAY MAGI Administration Sodium Chloride 10 ml 03/25/19 10:00 03/25/19 09:41 Sodium Chloride Flush Syringe 10 Ml IV 10 ml BID MAGI Administration Sodium Chloride 10 ml 03/24/19 23:00 Sodium Chloride Flush Syringe 10 Ml IV PRN PRN LINE FLUSH
[2019-03-25] MEDS: KEPPRA 750 MG in D5W 100 ML IV SCH ×2 (10:25→22:15)
[2019-03-25] MEDS: TYLENOL PO PRN (20:50)
[2019-03-26] MEDS: TORADOL IV PRN ×2 (02:34→19:52)
[2019-03-26 06:29] LABS: BUN/Creatinine Ratio 8; Blood Urea Nitrogen 8 mg/dL (9-20); Calcium 8.2 mg/dL (8.4-10.2); Hemolysis Index 3
[2019-03-26] MEDS: ENOXAPARIN SUB-Q SCH (10:12)
[2019-03-26] MEDS: PRAVACHOL PO SCH (10:12)
[2019-03-26] MEDS: NACL 0.9% 1000 ML 1,000 ML IV SCH ×2 (10:12→19:44)
[2019-03-26] MEDS: LaMICtal PO SCH ×2 (10:12→21:18)
[2019-03-26] MEDS: SODIUM CHLORIDE FLUSH SYRINGE 10 ML IV SCH ×2 (10:12→21:19)
[2019-03-26] MEDS: KEPPRA 750 MG in D5W 100 ML IV SCH ×2 (10:12→21:18)
--- NOTE | 2019-03-26 15:53 | Progress Note ---
Assessment and Plan Assessment and plan: 63-year-old man with a history of hypertension, hyperlipidemia, seizure comes emergency room with complaints of abdominal pain that started yesterday after eating salmon. Pain is periumbilical which she describes as dull pain, intermittent every 1 hour, intensity follow 10, no radiation cannot identify exacerbating factor. He stated that his abdominal pain is not resolved and was associated with multiple episodes of nausea vomiting. Today he has decreased appetite. Hyponatremia Acute Gastroenteritis, most likely viral Hypertension Hyperlipidemia Seizure Plan Admitted to Tele Continue iv fluids monitor sodium levels Na 129, increasing Continue appropriate outpatient medications DVT prophylaxis Poss dc tomorrow if Sodium normal or close to normal. History Interval history: Vomiting subsiding less abd pain Hospitalist Physical - Physical exam Narrative exam: Gen: Not in acute distress, lying in bed, HEENT: Normocephalic, atraumatic Neck: supple, no JVD Heart: S1 and S2 reg, no murmurs, rubs or gallop Lungs: Clear to auscultation, no rhonchi, no wheeze Abd: soft, non tender, non distended, normal BS, Ext: No edema, no clubbing, no cyanosis Neuro: Awake, alert, oriented X 3, no focal neurological signs - Constitutional Vitals: Temp Pulse Resp BP Pulse Ox 97.9 F 66 18 147/78 100 03/26/19 15:42 03/26/19 15:42 03/26/19 15:42 03/26/19 15:42 03/26/19 15:42 Results - Labs CBC & Chem 7: 03/25/19 06:59 03/26/19 14:31 Labs: Laboratory Last Values WBC 6.1 K/mm3 (4.5-11.0) 03/25/19 06:59 RBC 3.96 M/mm3 (3.65-5.03) 03/25/19 06:59 Hgb 13.0 gm/dl (11.8-15.2) 03/25/19 06:59 Hct 37.2 % (35.5-45.6) 03/25/19 06:59 MCV 94 fl (84-94) 03/25/19 06:59 MCH 33 pg (28-32) H 03/25/19 06:59 MCHC 35 % (32-34) H 03/25/19 06:59 RDW 13.8 % (13.2-15.2) 03/25/19 06:59 Plt Count 211 K/mm3 (140-440) 03/25/19 06:59 Lymph % (Auto) 22.4 % (13.4-35.0) 03/25/19 06:59 Corson % (Auto) 11.0 % (0.0-7.3) H 03/25/19 06:59 Eos % (Auto) 0.8 % (0.0-4.3) 03/25/19 06:59 Baso % (Auto) 0.6 % (0.0-1.8) 03/25/19 06:59 Lymph # 1.4 K/mm3 (1.2-5.4) 03/25/19 06:59 Corson # 0.7 K/mm3 (0.0-0.8) 03/25/19 06:59 Eos # 0.0 K/mm3 (0.0-0.4) 03/25/19 06:59 Baso # 0.0 K/mm3 (0.0-0.1) 03/25/19 06:59 Seg Neutrophils % 65.2 % (40.0-70.0) 03/25/19 06:59 Seg Neutrophils # 4.0 K/mm3 (1.8-7.7) 03/25/19 06:59 Sodium 129 mmol/L (137-145) L 03/26/19 14:31 Potassium 3.9 mmol/L (3.6-5.0) 03/26/19 05:57 Chloride 95.4 mmol/L (98-107) L 03/26/19 05:57 Carbon Dioxide 25 mmol/L (22-30) 03/26/19 05:57 Anion Gap 13 mmol/L 03/26/19 05:57 BUN 8 mg/dL (9-20) L 03/26/19 05:57 Creatinine 1.0 mg/dL (0.8-1.5) 03/26/19 05:57 Estimated GFR > 60 ml/min 03/26/19 05:57 BUN/Creatinine Ratio 8 % 03/26/19 05:57 Glucose 89 mg/dL (75-100) 03/26/19 05:57 Uric Acid 4.3 mg/dL (3.5-7.6) 03/24/19 20:12 Calcium 8.2 mg/dL (8.4-10.2) L 03/26/19 05:57 Magnesium 1.80 mg/dL (1.7-2.3) 03/24/19 20:12 Total Bilirubin 0.40 mg/dL (0.1-1.2) 03/24/19 17:02 AST 15 units/L (5-40) 03/24/19 17:02 ALT 10 units/L (7-56) 03/24/19 17:02 Alkaline Phosphatase 99 units/L (35-129) 03/24/19 17:02 Total Creatine Kinase 194 units/L (55-170) H 03/24/19 20:12 Total Protein 8.2 g/dL (6.3-8.2) 03/24/19 17:02 Albumin 4.6 g/dL (3.9-5) 03/24/19 17:02 Albumin/Globulin Ratio 1.3 % 03/24/19 17:02 TSH 1.450 mlU/mL (0.270-4.200) 03/24/19 20:12 Urine Color Straw (Yellow) 03/24/19 22:20 Urine Turbidity Clear (Clear) 03/24/19 22:20 Urine pH 6.0 (5.0-7.0) 03/24/19 22:20 Ur Specific [place] 1.015 (1.003-1.030) 03/24/19 22:20 Urine Protein <15 mg/dl mg/dL (Negative) 03/24/19 22:20 Urine Glucose (UA) Neg mg/dL (Negative) 03/24/19 22:20 Urine Ketones Tr mg/dL (Negative) 03/24/19 22:20 Urine Blood Mod (Negative) 03/24/19 22:20 Urine Nitrite Neg (Negative) 03/24/19 22:20 Urine Bilirubin Neg (Negative) 03/24/19 22:20 Urine Urobilinogen < 2.0 mg/dL (<2.0) 03/24/19 22:20 Ur Leukocyte Esterase Neg (Negative) 03/24/19 22:20 Urine WBC (Auto) < 1.0 /HPF (0.0-6.0) 03/24/19 22:20 Urine RBC (Auto) 4.0 /HPF (0.0-6.0) 03/24/19 22:20 Urine Bacteria (Auto) 1+ /HPF (Negative) 03/24/19 22:20 Urine Osmolality 163 Mosm/kg 03/24/19 22:20 Urine Creatinine 48.0 mg/dL (0.1-20.0) H 03/24/19 22:20 Urine Sodium 26 mmol/L 03/24/19 22:20 Active Medications - Current Medications Current Medications: Generic Name Dose Route Start Last Admin Trade Name Freq PRN Reason Stop Dose Admin Acetaminophen 650 mg 03/24/19 23:00 03/25/19 20:50 Tylenol PO 650 mg Q4H PRN Administration Pain MILD(1-3)/Fever >100.5/FITZGERALD Enoxaparin Sodium 40 mg 03/25/19 10:00 03/26/19 10:12 Lovenox SUB-Q 40 mg QDAY MAGI Administration Sodium Chloride 1,000 mls @ 125 mls/hr 03/24/19 23:00 03/26/19 10:12 Nacl 0.9% 1000 Ml IV 125 mls/hr DIRECT MAGI Administration Levetiracetam 750 mg/ Dextrose 107.5 mls @ 400 mls/hr 03/25/19 10:00 03/26/19 10:12 IV 400 mls/hr Q12HR MAGI Administration Ketorolac Tromethamine 15 mg 03/26/19 02:25 03/26/19 02:34 Toradol IV 15 mg Q6H PRN Administration Pain, Mild (1-3) Lamotrigine 200 mg 03/25/19 10:00 03/26/19 10:12 Lamictal PO 200 mg BID MAGI Administration Ondansetron HCl 4 mg 03/24/19 23:00 Zofran IV Q8H PRN Nausea And Vomiting Pravastatin Sodium 80 mg 03/25/19 10:00 03/26/19 10:12 Pravachol PO 80 mg QDAY MAGI Administration Sodium Chloride 10 ml 03/25/19 10:00 03/26/19 10:12 Sodium Chloride Flush Syringe 10 Ml IV 10 ml BID MAGI Administration Sodium Chloride 10 ml 03/24/19 23:00 Sodium Chloride Flush Syringe 10 Ml IV PRN PRN LINE FLUSH Nutrition/Malnutrition Assess - Dietary Evaluation Nutrition/Malnutrition Findings: Nutrition Notes Start: 03/25/19 11:46 Freq: Status: Active Protocol: Document 03/25/19 11:46 CC (Rec: 03/25/19 12:45 CC [id number]) Co-Sign 03/25/19 11:46 KH Nutrition Notes Need for Assessment generated from: MST Initial or Follow up Assessment Current Diagnosis Hypertension,Hyperlipidemia Other Pertinent Diagnosis seizures, high cholesterol Current Diet Cardiac Labs/Tests reviewed Pertinent Medications reviewed Height 5 ft 9 in Weight 73.3 kg [place] Body Weight (kg) 72.72 BMI 23.8 Weight change and time frame 12.7%/1 year Weight Status Appropriate Subjective/Other Information MST score. 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 Pt reported his appetite has been good after arrival and GI symptoms have improved. Pt reported he has had an unintentional wt loss of 15lbs in the past year. Pt had some mild temporal muscle wasting. Percent of energy/protein needs met: 93% energy/ 100% protein Burn Absent Trauma Absent GI Symptoms None Food Allergy No Cultural/Ethnic/Mormon Belief No pork, no milk Current % PO Good (75-100%) Minimum of two criteria No #1 Nutrition Diagnosis No nutrition diagnosis at this time Is patient on ventilator? No Is Patient Ambulatory and/or Out of Bed Yes REE-([facility]-ambulatory/OOB) [ 1973.894 [id number]] Calculation Used for Recommendations [facility] Additional Notes PRO: 59-73g/day (0.8-1.0g/kg) Fluid: 1ml/kcal Nutrition Intervention Change Diet Order: continue cardiac diet Goal #1 Continue to meet at least 80% energy and protein needs po Anticipated Discharge Needs: cardiac diet Revisit per MD consult or patient Sign Off request:
[2019-03-26] MEDS: TYLENOL PO PRN (23:31)
[2019-03-27] MEDS: TORADOL IV PRN (06:00)
[2019-03-27] MEDS: NACL 0.9% 1000 ML 1,000 ML IV SCH (06:02)
[2019-03-27] MEDS: ENOXAPARIN SUB-Q SCH (09:59)
[2019-03-27] MEDS: PRAVACHOL PO SCH (09:59)
[2019-03-27] MEDS: LaMICtal PO SCH (09:59)
[2019-03-27] MEDS: SODIUM CHLORIDE FLUSH SYRINGE 10 ML IV SCH (10:00)
[2019-03-27] MEDS: KEPPRA 750 MG in D5W 100 ML IV SCH (10:02)
--- NOTE | 2019-03-27 10:50 | Discharge Summary ---
Providers - Providers Date of Admission: 03/24/19 23:00 Date of discharge: 03/27/19 Attending physician: SADE LEBLANC Hospitalization Condition: Good Disposition: DC-30 STILL A PATIENT - Discharge Diagnoses (1) Hyponatremia Status: Acute Exam - Constitutional Vitals: Temp Pulse Resp BP Pulse Ox 97.9 F 58 L 18 117/63 99 03/27/19 07:54 03/27/19 07:54 03/27/19 07:54 03/27/19 07:54 03/27/19 07:54 Plan Activity: no restrictions Diet: low fat, low cholesterol Plan of Treatment: 1.Follow up with PCP in 1 week [facility] [Referring[facility] - 3-5 Days Prescriptions: amLODIPine 5 mg PO DAILY #30 tab
[2019-03-27 11:35] VITALS: BP 158/76
[2019-03-27] MEDS: TYLENOL PO PRN (14:01)
[2019-03-28] MEDS ORDERED: KEPPRA PO SCH (10:00)
== END 2019-03-27 18:35 | disposition home or self-care (01) | DRG 392 ==
LOC: ED 15:35 → 4A 23:00
PROVIDERS: ADMIT Internal Medicine; ATTEND Internal Medicine
DX: K52.9 Noninfective gastroenteritis and colitis, unspecified (principal); E87.1 Hypo-osmolality and hyponatremia; K59.00 Constipation, unspecified; E87.6 Hypokalemia; R56.9 Unspecified convulsions; I10 Essential (primary) hypertension; E78.5 Hyperlipidemia, unspecified; Z82.49 Family history of ischemic heart disease and other diseases of the circulatory system; Z83.3 Family history of diabetes mellitus; Z79.899 Other long term (current) drug therapy
CPT/HCPCS: 36415; 74022; 74177; 80048; 80053; 81001; 82550; 82570; 83735; 83935; 84295; 84300; 84443; 84550; 85025; 87045; 93005; 93010; 99406; G0378; A9270-GY; J1650; J1885; J1953; J2270; J2405; J3480; J7030; J7040; Q9967

== ENCOUNTER 2019-04-03 22:15 | Emergency (ER) | payer MEDICARE ==
--- NOTE | 2019-04-03 22:51 | Emergency Department Report ---
Blank Doc - Documentation Documentation: 63-year-old male that presents with abdominal pain and n/v. Stated has been h aving aura but denies any SZ. This initial assessment/diagnostic orders/clinical plan/treatment(s) is/are subject to change based on patient's health status, clinical progression and re- assessment by fellow clinical providers in the ED. Further treatment and workup at subsequent clinical providers discretion. Patient/guardians urged not to elope from the ED as their condition may be serious if not clinically assessed and managed. Initial orders include: 1- Patient sent to [facility] for further evaluation and treatment 2- labs 3- UA
[2019-04-03 22:55] VITALS: BP 139/81
[2019-04-03 23:55] LABS: Basophils # (Auto) 0.1 K/mm3 (0.0-0.1); Basophils % (Auto) 0.6 % (0.0-1.8); Eosinophils % (Auto) 0.4 % (0.0-4.3); Hematocrit 24.2 % (35.5-45.6); Hemoglobin 8.5 gm/dl (11.8-15.2); Lymphocytes # (Auto) 1.8 K/mm3 (1.2-5.4); Lymphocytes % (Auto) 16.2 % (13.4-35.0); Mean Corpuscular HGB Conc 35 % (32-34); Mean Corpuscular Volume 95 fl (84-94); Monocytes # (Auto) 0.8 K/mm3 (0.0-0.8); Platelet Count 307 K/mm3 (140-440); Red Blood Count 2.56 M/mm3 (3.65-5.03); Red Cell Distribution Width 13.7 % (13.2-15.2)
[2019-04-04 00:10] LABS: Alanine Aminotransferase 9 units/L (7-56); Albumin 4.5 g/dL (3.9-5); BUN/Creatinine Ratio 11; Blood Urea Nitrogen 12 mg/dL (9-20); Calcium 9.7 mg/dL (8.4-10.2); Hemolysis Index 4
[2019-04-04] MEDS ORDERED: ONDANSETRON 4 MG/2 ML INJ IM ONE (00:15)
--- NOTE | 2019-04-04 00:16 | Emergency Department Report ---
ED Abdominal Pain HPI - General Chief Complaint: Abdominal Pain Stated Complaint: VOMITING/SEIZURE Time Seen by Provider: 04/03/19 22:50 Source: patient Mode of arrival: Ambulatory Limitations: No Limitations - History of Present Illness Initial Comments: Patient is 63 years old male with history of seizure. Patient recently discharged from the hospital for gastroenteritis and hyponatremia. Patient stated that he was doing well until 3 days ago when he started having more abdominal pain and nausea and vomiting. Patient stated that he is unable to keep anything down. Patient denied any fever or chills. Patient also denied any chest pain or shortness of breath. MD Complaint: abdominal pain - Related Data Home Medications Medication Instructions Recorded Confirmed Last Taken Simvastatin 40 mg PO QDAY 03/24/19 03/24/19 Unknown lamoTRIgine [LaMICtal] 200 mg PO BID 03/24/19 03/24/19 Unknown Previous Rx's Medication Instructions Recorded Last Taken Type levETIRAcetam [Keppra TAB] 750 mg PO BID #90 tablet 08/01/18 Unknown Rx amLODIPine 5 mg PO DAILY #30 tab 03/27/19 Unknown Rx Allergies Allergy/AdvReac Type Severity Reaction Status Date / Time No Known Allergies Allergy Unverified 07/31/18 23:18 ED Review of Systems ROS: Stated complaint: VOMITING/SEIZURE Other details as noted in HPI Comment: All other systems reviewed and negative Constitutional: denies: chills, fever Respiratory: denies: cough Cardiovascular: denies: chest pain, palpitations Gastrointestinal: abdominal pain, nausea, vomiting, diarrhea. denies: constipation, hematemesis, melena, hematochezia Musculoskeletal: denies: back pain Neurological: denies: headache, weakness ED Past Medical Hx - Past Medical History Hx Hypertension: No Hx Diabetes: No Hx Seizures: Yes Hx Asthma: No Hx COPD: No Additional medical history: High colesterol - Surgical History Additional Surgical History: abd hernia - Social History Smoking Status: Former Smoker - Medications Home Medications: Home Medications Medication Instructions Recorded Confirmed Last Taken Type levETIRAcetam [Keppra TAB] 750 mg PO BID #90 tablet 08/01/18 03/24/19 Unknown Rx Simvastatin 40 mg PO QDAY 03/24/19 03/24/19 Unknown History lamoTRIgine [LaMICtal] 200 mg PO BID 03/24/19 03/24/19 Unknown History amLODIPine 5 mg PO DAILY #30 tab 03/27/19 Unknown Rx ED Physical Exam - General Limitations: No Limitations General appearance: alert, in no apparent distress - Head Head exam: Present: atraumatic, normocephalic, normal inspection - Eye Eye exam: Present: normal appearance, PERRL - ENT ENT exam: Present: normal exam, normal orophraynx, mucous membranes moist - Neck Neck exam: Present: normal inspection, full ROM. Absent: tenderness, meningismus - Respiratory Respiratory exam: Present: normal lung sounds bilaterally - Cardiovascular Cardiovascular Exam: Present: regular rate, normal rhythm, normal heart sounds - GI/Abdominal GI/Abdominal exam: Present: soft, normal bowel sounds. Absent: distended, tenderness, guarding, rebound, rigid, organomegaly, mass, bruit, pulsatile mass, hernia - Back Exam Back exam: Present: normal inspection, full ROM. Absent: CVA tenderness (R), CVA tenderness (L), muscle spasm, paraspinal tenderness, vertebral tenderness - Neurological Exam Neurological exam: Present: alert, oriented X3, CN II-XII intact, normal gait, reflexes normal - Psychiatric Psychiatric exam: Present: normal mood - Skin Skin exam: Present: warm, intact, normal color ED Course Vital Signs 04/03/19 04/04/19 22:52 00:44 Temperature 98.0 F Pulse Rate 92 H Respiratory 20 16 Rate Blood Pressure 139/81 O2 Sat by Pulse 100 Oximetry ED Medical Decision Making - Lab Data Result diagrams: 04/03/19 23:08 04/03/19 23:08 - Radiology Data Radiology results: image reviewed - Medical Decision Making Patient is 63 years old male with history of seizure. Patient recently disch arged from the hospital for gastroenteritis and hyponatremia. Patient stated that he was doing well until 3 days ago when he started having more abdominal pain and nausea and vomiting. Patient stated that he is unable to keep anything down. Patient denied any fever or chills. Patient also denied any chest pain or shortness of breath. Patient received morphine, Zofran and GI cocktail. Patient stated that his symptoms is completely resolved. No vomiting observed in the ER. Labs reviewed that is unremarkable. Abdominal x-ray showed no evidence of bowel obstruction however showed a right-sided constipation. Patient given prescription for Zofran, Nexium and lactulose and advised to follow-up with his GI doctor in the next 2-3 days and to attend to the ER if symptoms are not improved. Critical care attestation.: If time is entered above; I have spent that time in minutes in the direct care of this critically ill patient, excluding procedure time. ED Disposition Clinical Impression: Constipation, Abdominal pain, Gastritis Disposition: TO HOME OR SELFCARE Is pt being admited?: No Condition: Stable Instructions: Abdominal Pain (ED), Gastritis (ED), High Fiber Diet (ED), Constipation (ED)
[2019-04-04] MEDS ORDERED: MORPHINE 4 MG/1 ML INJ IM ONE (00:19)
[2019-04-04] MEDS ORDERED: LIDOCAINE VISCOUS 2% 15 ML ORAL LIQD PO ONE (00:56)
[2019-04-04] MEDS ORDERED: ALUM-MAG HYDROXIDE-SIMETHICONE 200-200-20MG/5ML ORAL LIQD 30 ML PO ONE (00:56)
--- NOTE | 2019-04-04 03:26 | XRay Report ---
ACUTE ABDOMEN SERIES 3 VIEWS 0026 INDICATION: abdominal pain COMPARISON: 03/24/2019 FINDINGS: Lung perez are clear. No pneumoperitoneum is seen. Moderate amount of stool is seen in non dilated colon, slightly less than previous study. Findings suggest constipation. I do not see evidenc e of bowel obstruction. Signer Name: Nicola Gonzalez MD Signed: 04/04/2019 3:21 AM Workstation Name: [id number]
== END 2019-04-04 03:08 | disposition home or self-care (01) ==
LOC: ED 22:15
DX: K29.70 Gastritis, unspecified, without bleeding (principal); K59.00 Constipation, unspecified; E78.00 Pure hypercholesterolemia, unspecified
CPT/HCPCS: 36415; 74022; 80053; 83690; 85025; 96372; 99283; J2270; J2405

== ENCOUNTER 2019-08-05 11:07 | Emergency (ER) | payer MEDICARE ==
[2019-08-05] MEDS ORDERED: levETIRAcetam 1000 MG/NS 0.75% 1,000 MG/100 ML BAG IV ONE (11:49)
[2019-08-05] MEDS ORDERED: LORazepam 2 MG/ML VIAL IV ONE ×2 (11:49→12:17)
[2019-08-05] MEDS ORDERED: LORazepam 2 MG/ML VIAL IV NR ×2 (12:00→12:30)
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
--- NOTE | 2019-08-05 12:13 | Cat Scan Report ---
CT head/brain wo con INDICATION / CLINICAL INFORMATION: 63 years Male; Stroke symptoms. TECHNIQUE: Routine CT head without contrast. All CT scans at this location are performed using CT dos e reduction for ALARA by means of automated exposure control. COMPARISON: None. FINDINGS: BRAIN / INTRACRANIAL CONTENTS: The motion degrades image quality at. However, there is mild cerebral white matter disease most consistent with microvascular angiopathy. The ventricular system is within normal limits in size and configuration. There is no clear CT evidence of acute intracranial hemorrha ge or significant mass effect. ORBITS: No significant abnormality of visualized orbits. SINUSES / MASTOIDS: No significant abnormality the visualized paranasal sinuses or mastoid air cells. CRANIOCERVICAL JUNCTION: No significant abnormality. ADDITIONAL FINDINGS: There is notable atherosclerotic calcification within the vertebral basilar syst em. IMPRESSION: 1. There is mild microvascular angiopathy without clear CT evidence of acute intracranial hemorrhage. The study was specified as code stroke and called emergently to Dr. Siddiqi in the ER at 1107 AM Central standard time. Signer Name: Fernando Jackson MD Signed: 08/05/2019 12:09 PM Workstation Name: [id number]
[2019-08-05 12:14] LABS: Basophils # (Auto) 0.1 K/mm3 (0.0-0.1); Basophils % (Auto) 0.9 % (0.0-1.8); Eosinophils % (Auto) 0.1 % (0.0-4.3); Hematocrit 32.1 % (35.5-45.6); Hemoglobin 10.7 gm/dl (11.8-15.2); Lymphocytes % (Auto) 25.7 % (13.4-35.0); Mean Corpuscular HGB Conc 33 % (32-34); Mean Corpuscular Volume 86 fl (84-94); Monocytes # (Auto) 0.6 K/mm3 (0.0-0.8); Monocytes % (Auto) 7.6 % (0.0-7.3); Platelet Count 259 K/mm3 (140-440); Red Blood Count 3.75 M/mm3 (3.65-5.03)
[2019-08-05 12:22] LABS: INR 1.03 (0.87-1.13)
[2019-08-05 12:23] LABS: Partial Thromboplastin Time 32.5 Sec. (24.2-36.6); Thrombin Time 14.9 Sec. (15.1-19.6)
[2019-08-05 12:43] LABS: Creatine Kinase MB 1.6 ng/mL (0.0-4.0)
[2019-08-05 12:44] LABS: Alanine Aminotransferase 15 units/L (7-56); Albumin 4.5 g/dL (3.9-5); BUN/Creatinine Ratio 9; Blood Urea Nitrogen 9 mg/dL (9-20); Calcium 8.8 mg/dL (8.4-10.2); Hemolysis Index 3
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
[2019-08-05 16:45] VITALS: BP 179/91
== END 2019-08-05 20:53 | disposition home or self-care (01) ==
LOC: ED 11:07
DX: G40.909 Epilepsy, unspecified, not intractable, without status epilepticus (principal); Z87.891 Personal history of nicotine dependence; Z79.899 Other long term (current) drug therapy
CPT/HCPCS: 36415; 70450; 80053; 82550; 82553; 82962; 84484; 85025; 85610; 85670; 85730; 93005; 93010; 96374; 96375; 96376; 99285; J1953; J2060

== ENCOUNTER 2019-12-22 11:57 | Emergency (ER) | payer MEDICARE ==
[2019-12-22 14:21] VITALS: BP 110/72
--- NOTE | 2019-12-22 14:39 | Emergency Department Report ---
Blank Doc - Documentation Documentation: 64-year-old male that presents with abdominal pain w/ n/v. This initial assessment/diagnostic orders/clinical plan/treatment(s) is/are subject to change based on patient's health status, clinical progression and re- assessment by fellow clinical providers in the ED. Further treatment and workup at subsequent clinical providers discretion. Patient/guardians urged not to elope from the ED as their condition may be serious if not clinically assessed and managed. Initial orders include: 1- Patient sent to [facility] for further evaluation and treatment 2- labs 3- UA
[2019-12-22 15:01] LABS: Basophils # (Auto) 0.1 K/mm3 (0.0-0.1); Basophils % (Auto) 0.9 % (0.0-1.8); Eosinophils % (Auto) 0.4 % (0.0-4.3); Hematocrit 31.6 % (35.5-45.6); Hemoglobin 11.5 gm/dl (11.8-15.2); Lymphocytes # (Auto) 1.5 K/mm3 (1.2-5.4); Lymphocytes % (Auto) 21.6 % (13.4-35.0); Mean Corpuscular HGB Conc 36 % (32-34); Mean Corpuscular Volume 90 fl (84-94); Monocytes # (Auto) 0.6 K/mm3 (0.0-0.8); Monocytes % (Auto) 8.6 % (0.0-7.3); Platelet Count 280 K/mm3 (140-440); Red Blood Count 3.52 M/mm3 (3.65-5.03); Red Cell Distribution Width 16.2 % (13.2-15.2)
[2019-12-22 15:24] LABS: Alanine Aminotransferase 7 units/L (7-56); Albumin 4.1 g/dL (3.9-5); BUN/Creatinine Ratio 11; Blood Urea Nitrogen 12 mg/dL (9-20); Calcium 9.4 mg/dL (8.4-10.2); Hemolysis Index 10
== END 2019-12-22 21:30 | disposition left against medical advice (07) ==
LOC: ED 11:57
DX: R10.9 Unspecified abdominal pain (principal); Z53.21 Procedure and treatment not carried out due to patient leaving prior to being seen by health care provider
CPT/HCPCS: 36415; 80053; 83690; 85025